=== PATIENT | female | born 1945 | race African-American/Black ===

== ENCOUNTER 2016-06-15 07:06 | Day surgery (SDC) | payer MEDICARE, OTHER ==
[~2016-06-15 07:06] MED LIST: KETOROLAC TROMETHAMINE 0.45% 4 DROP/0.4 ML DROPERETTE OS PRN; MIDAZOLAM 2 MG/2 ML INJ ONE
[2016-06-15] MEDS ORDERED: EPINEPHRINE INJ/PF 1 MG/1 ML AMPULE ONE (07:35)
[2016-06-15] MEDS ORDERED: LIDOCAINE 1% INJ-PF (10 MG/ML) 30 ML SDV ONE (07:35)
[2016-06-15] MEDS ORDERED: CHONDR SU A NA/HYALUR INTRAOC KIT (SURGICARE) ONE (07:35)
[2016-06-15] MEDS: CYCLOPENTOLATE 0.2%/PHENYLEPHRINE 1% OPH SOLN 2 ML OS PRN ×3 (07:47→08:08)
[2016-06-15] MEDS: TROPICAMIDE 1% OPH SOLN 3 ML OS PRN ×3 (07:47→08:08)
[2016-06-15] MEDS: BESIFLOXACIN HCL 0.6% OPH SUSP 5 ML BOTTLE OS PRN ×4 (07:47→08:49)
[2016-06-15] MEDS: TETRACAINE HCL 0.5% OPH SOLN 2 ML OS PRN ×3 (07:48→08:35)
--- NOTE | 2016-06-15 20:08 | [facility] OPERATIVE REPORT E ---
[facility] Operative Report NAME: MARY JEFFERS AGE: 71Y DATE OF SURGERY: 06/15/2016 ROOM: PREOPERATIVE DIAGNOSIS: Cataract, left eye. POSTOPERATIVE DIAGNOSIS: Cataract, left eye. OPERATION: Cataract extraction with intraocular lens implant of the left eye. SURGEON: GINA VAZ M.D. ANESTHESIA: Topical. PROCEDURE: After obtaining appropriate consent, the patient's left eye was prepped and draped in sterile fashion as well as the surgeon in a sterile manner and cataract surgery was started. First a paracentesis blade was used to make a small side-port incision. Viscoelastic was used to inflate the anterior chamber. Next a 2.4 mm incision was made with the paracentesis blade. A continuous capsulorrhexis incision was made using a cystotome and Utrata forceps. Following this hydrodissection was carried out to make the lens fully loose and mobile and it was rotated 90 degrees. Following this, a etxuuu-fyb-vdkjlpm technique was used to phacoemulsify the lens with a CDE of 9.85. The remaining cortex was removed with irrigation/aspiration. Provisc was instilled into the capsular bag to inflate the bag. A SN60WF, 24.5 diopter lens was placed. The remaining viscoelastic material was removed with irrigation/aspiration. Following this, a 10-0 nylon suture was used to close the incision and it was found to be watertight. Vigamox was instilled in the eye and a protective shield was placed over the eye. The patient returned to the postoperative recovery in stable condition. DICTATING PHYSICIAN: GINA VAZ M.D. [id number] PHY#: [id number] ID: [id number] JOB#: [id number] ACCT: [id number] cc:GINA VAZ M.D. >
--- NOTE | 2016-06-15 20:08 | DISCHARGE SUMMARY E ---
Discharge Summary NAME: MARY JEFFERS : 1945 AGE: 71Y ADMITTED: 06/15/2016 DISCHARGED: HISTORY AND HOSPITAL COURSE: This is a 71-year-old female who underwent cataract extraction of the left eye. Diagnosis: Cataract, left eye. She underwent surgery because she was having difficulty seeing road signs and glare from headlights. She should be on a regular diet. No bending at her waist. No heavy lifting. She should use her Besivance, Ilevro, and Durezol at 3:00 p.m. and 8:00 p.m. and sleep with a rigid shield, and I will see her for a 1-day postoperative visit tomorrow. DICTATING PHYSICIAN: GINA VAZ M.D. [id number] PHY#: [id number] ID: [id number] JOB#: [id number] ACCT: [id number] cc:GINA VAZ M.D. >
== END 2016-06-15 09:34 | disposition home or self-care (01) ==
LOC: SC 07:06
PROVIDERS: ATTEND Internal Medicine
PROC: 08RK3JZ Replacement of Left Lens with Synthetic Substitute, Percutaneous Approach (ICD-10-PCS; principal; 2016-06-15 08:30)
DX: H25.13 Age-related nuclear cataract, bilateral (principal); J45.909 Unspecified asthma, uncomplicated; I10 Essential (primary) hypertension; E11.9 Type 2 diabetes mellitus without complications; G47.30 Sleep apnea, unspecified; Z79.82 Long term (current) use of aspirin
CPT/HCPCS: 66984; 82962; V2632; J2250; J3490 ×2; A9270; J0171; 142

== ENCOUNTER 2016-07-06 07:57 | Day surgery (SDC) | payer MEDICARE, OTHER ==
[~2016-07-06 07:57] MED LIST changes: +CHONDR SU A NA/HYALUR INTRAOC KIT (SURGICARE) ONE; +EPINEPHRINE INJ/PF 1 MG/1 ML AMPULE ONE; +FENTANYL CITRATE INJ/PF 100 MCG/2 ML AMPUL ONE; +KETOROLAC TROMETHAMINE 0.45% 4 DROP/0.4 ML DROPERETTE OD PRN; -KETOROLAC TROMETHAMINE 0.45% 4 DROP/0.4 ML DROPERETTE OS PRN; +LIDOCAINE 1% INJ-PF (10 MG/ML) 30 ML SDV ONE; +ONDANSETRON HCL INJ/PF 4 MG/2 ML SDV ONE
[2016-07-06] MEDS: TROPICAMIDE 1% OPH SOLN 3 ML OD PRN ×3 (08:30→08:48)
[2016-07-06] MEDS: CYCLOPENTOLATE 0.2%/PHENYLEPHRINE 1% OPH SOLN 2 ML OD PRN ×3 (08:31→08:49)
[2016-07-06] MEDS: TETRACAINE HCL 0.5% OPH SOLN 2 ML OD PRN ×3 (08:32→09:09)
[2016-07-06] MEDS: BESIFLOXACIN HCL 0.6% OPH SUSP 5 ML BOTTLE OD PRN ×4 (08:32→09:38)
[2016-07-06] MEDS ORDERED: MIDAZOLAM 2 MG/2 ML INJ ONE (08:43)
--- NOTE | 2016-07-06 13:08 | [facility] OPERATIVE REPORT E ---
[facility] Operative Report NAME: MARY JEFFERS AGE: 71Y DATE OF SURGERY: 07/06/2016 ROOM: PREOPERATIVE DIAGNOSIS: CATARACT, RIGHT EYE. POSTOPERATIVE DIAGNOSIS: CATARACT, RIGHT EYE. OPERATION: Cataract extraction with intraocular lens implant of the right eye. SURGEON: GINA VAZ M.D. ANESTHESIA: Topical. PROCEDURE: After obtaining appropriate consent, the patient's right eye was prepped and draped in sterile fashion as well as the surgeon in a sterile manner and cataract surgery was started. First a paracentesis blade was used to make a small side-port incision. Viscoelastic was used to inflate the anterior chamber. Next a 2.4 mm incision was made with the paracentesis blade. A continuous capsulorrhexis incision was made using a cystotome and Utrata forceps. Following this hydrodissection was carried out to make the lens fully loose and mobile and it was rotated 90 degrees. Following this, a hkxvqm-txu-vxnbefe technique was used to phacoemulsify the lens with a CDE of 17.55. The remaining cortex was removed with irrigation/aspiration. Provisc was instilled into the capsular bag to inflate the bag. A SN60WF, 23.5 diopter lens was placed. The remaining viscoelastic material was removed with irrigation/aspiration. Following this, a 10-0 nylon suture was used to close the incision and it was found to be watertight. Vigamox was instilled in the eye and a protective shield was placed over the eye. The patient returned to the postoperative recovery in stable condition. DICTATING PHYSICIAN: GINA VAZ M.D. [id number] PHY#: [id number] ID: [id number] JOB#: [id number] ACCT: [id number] cc:GINA VAZ M.D. >
--- NOTE | 2016-07-06 13:09 | [facility] DISCHARGE SUMMARY E ---
[facility] Discharge Summary NAME: MARY JEFFERS AGE: 71Y ADMITTED: 07/06/2016 DISCHARGED: 07/06/2016 HOSPITAL COURSE: This is a 71-year-old female who underwent cataract extraction of the right eye diagnosed as cataract right eye. She underwent surgery because she was having difficulty driving at night secondary to glare from headlights and difficulty seeing medicine bottles. She should be on a regular diet. No bending at her waist. No heavy lifting. She should use her Besivance, Ilevro, and Durezol at 3 p.m. and 8 p.m. and sleep with a rigid shield, and I will see her for a one day postoperative tomorrow. DICTATING PHYSICIAN: GINA VAZ M.D. [id number] PHY#: [id number] ID: [id number] JOB#: [id number] ACCT: [id number] cc:GINA VAZ M.D. >
== END 2016-07-06 10:30 | disposition home or self-care (01) ==
LOC: SC 07:57
PROVIDERS: ATTEND Internal Medicine
PROC: 08RJ3JZ Replacement of Right Lens with Synthetic Substitute, Percutaneous Approach (ICD-10-PCS; principal; 2016-07-06 09:30)
DX: H25.11 Age-related nuclear cataract, right eye (principal); E11.9 Type 2 diabetes mellitus without complications; I10 Essential (primary) hypertension; F17.210 Nicotine dependence, cigarettes, uncomplicated; Z79.899 Other long term (current) drug therapy; Z79.82 Long term (current) use of aspirin; Z79.84 Long term (current) use of oral hypoglycemic drugs; Z79.01 Long term (current) use of anticoagulants
CPT/HCPCS: 66984; 82962; V2632; J2250; J3490 ×2; A9270; J0171; 142; J2405; J3010

== ENCOUNTER → 2017-06-15 | Outpatient (CLI) | payer MEDICARE, OTHER ==
--- NOTE | 2017-06-15 12:31 | RADIOLOGY REPORT (SQ) ---
EXAM DESCRIPTION: BARIUM SWALLOW PHARYNX ONLY COMPLETED DATE/TIME: 06/15/2017 11:59 am REASON FOR STUDY: DYSPHAGIA (R13.10) R13.10 DYSPHAGIA, UNSPECIFIED COMPARISON: None. TECHNIQUE: Under fluoroscopic guidance, patient ingested one swallow of water soluble contrast initi ally then effervescent granules followed by thick and thin barium. Fluoroscopic spot images and routi ne radiographic images acquired and stored on PACS. 12 MM BARIUM TABLET GIVEN: Yes. No significant delay in passage. LIMITATIONS: None. FLUOROSCOPY TIME: FLUORO TIME: 20 SECONDS 10 fluoroscopy images saved to PACS. FINDINGS: NEUROMUSCULAR COORDINATION OF SWALLOW: Normal. No aspiration. ESOPHAGEAL MOTILITY: Normal peristalsis. No esophageal spasm. ESOPHAGEAL MUCOSA: Normal mucosa without masses or ulceration. No foreign bodies or obstruction iden tified. GASTRO-ESOPHAGEAL JUNCTION: A very small sliding hiatal hernia with moderate gastroesophageal reflux is seen extending into the mid esophagus. NON-GI TRACT STRUCTURES: No significant finding. OTHER: No other significant finding. IMPRESSION: 1. NO FOREIGN BODY OR OBSTRUCTION. 2. VERY SMALL SLIDING HIATAL HERNIA WITH MODERATE GASTROESOPHAGEAL REFLUX. COMMENT: Attempt was made to call report at 1210 hours however, the office is closed until 1300 hour s for lunch therefore the report will be called at 1300 hours. Quality ID [id number]: Final reports for procedures using fluoroscopy that document radiation exposure morales ramos, or exposure time and number of fluorographic images (if radiation exposure indices are not avail able) TECHNICAL DOCUMENTATION: JOB ID: [id number] [employer]- All Rights Reserved
== END ==
LOC: RAD 11:20
PROVIDERS: ATTEND Internal Medicine
DX: R13.10 Dysphagia, unspecified (principal)
CPT/HCPCS: 74210

== ENCOUNTER 2018-05-07 08:15 | Emergency (ER) | payer MEDICARE, OTHER ==
--- NOTE | 2018-05-07 09:03 | ER Document Report ---
ED General - General Chief Complaint: Lower Abdominal Pain Stated Complaint: ABDOMINAL PAIN, RIGHT KNEE/SHOULDER PAIN Time Seen by Provider: 05/07/18 09:03 Notes: Patient is a 73-year-old female that presents to the emergency department for chief complaint of abdominal pain. Patient states the pain started Sunday morning, it was coming and going, described as a sharp pain in the right lower quadrant, she is felt gassy as well, she took some Pepto-Bismol and Maalox without much relief of her pain so she decided come to the ED to have this evaluated. She currently rates the pain as a 2 out of 10, the pain does come and go, describes as an aching and occasionally sharp sensation is noted. they have had associated nausea, but no vomiting, she states she thought she might of been constipated, but she did have a bowel movement yesterday. She also secondarily complains of some pain in her left foot, and noticed some swelling, the pains along the medial lower aspect of the foot, worse with walking. No injury she is aware of. Past Medical History: Diabetes mellitus, A. fib, hypertension Past Surgical History: Bilateral total knee arthroplasty Social History: Former smoker, denies current alcohol or drug use. Family History: Reviewed and noncontributory for presenting illness Allergies: Reviewed, see documented allergy list. REVIEW OF SYSTEMS: Other than noted above, the 12 point review of systems was reviewed with the patient and were negative, all pertinent findings are included in the HPI. PHYSICAL EXAMINATION: Vital signs reviewed, nursing noted reviewed. GENERAL: Elderly female, but well-appearing and well-nourished in no acute distress. HEAD: Atraumatic, normocephalic. EYES: Eyes appear normal, extraocular movements intact, sclera anicteric, conjunctiva are normal. ENT: nares patent, oropharynx clear without exudates. Moist mucous membranes. NECK: Normal range of motion, supple without lymphadenopathy LUNGS: Breath sounds clear to auscultation bilaterally and equal. No wheezes rales or rhonchi. HEART: Regular rate and rhythm without murmurs ABDOMEN: Soft, normal bowel sounds, tenderness with palpation, mild in the right lower quadrant, No rebound, guarding, or rigidity. No masses appreciated. EXTREMITIES: Left ankle: There is mild tenderness to palpation over the medial malleolus, without deformity or ecchymosis, there is slight pedal edema compared to the right, no calf tenderness bilaterally, no erythema, there is tenderness to palpation of the plantar fascia on the left compared to the right as well. Otherwise good range of motion, no pitting edema. NEUROLOGICAL: No focal neurological deficits. Moves all extremities spontaneously Motor and sensory grossly intact on exam. PSYCH: Normal mood, normal affect. SKIN: Warm, Dry, normal turgor, no rashes or lesions noted on exposed skin TRAVEL OUTSIDE OF THE [place] IN LAST 30 DAYS: No - Related Data Allergies/Adverse Reactions: No Known Allergies Allergy (Verified 05/07/18 08:18) Past Medical History - Social History Smoking Status: Former Smoker Family History: Reviewed & Not Pertinent - Past Medical History Cardiac Medical History: Reports: Hx Atrial Fibrillation, Hx Hypertension Denies: Hx Heart Attack - STRESS TEST NORMAL Pulmonary Medical History: Reports: Hx Asthma - brought on by illness, pneumonia Neurological Medical History: Denies: Hx Cerebrovascular Accident, Hx Seizures Endocrine Medical History: Reports: Hx Diabetes Mellitus Type 2 GI Medical History: Denies: Hx Hepatitis, Hx Hiatal Hernia, Hx Ulcer Infectious Medical History: Denies: Hx Hepatitis Past Surgical History: Reports: Hx Hysterectomy. Denies: Hx Mastectomy, Hx Open Heart Surgery, Hx Pacemaker - Immunizations Hx Diphtheria, Pertussis, Tetanus Vaccination: No Physical Exam - Vital signs Vitals: Temp Pulse Resp BP Pulse Ox 98.1 F 67 20 160/73 H 97 05/07/18 08:27 05/07/18 08:27 05/07/18 08:27 05/07/18 08:27 05/07/18 08:27 Course - Re-evaluation Re-evalutation: Patient seen and examined vital signs reviewed. Laboratory data and imaging were ordered as appropriate for the patient's presenting symptoms and complaint, with consideration of any critical or life threatening conditions that may be associated with their obtained history and exam as noted above. Patient was treated with 2 mg of IV morphine, Zofran, and IV fluids Results were reviewed when available and demonstrated unremarkable CBC, no leukocytosis, normal lactic acid, CMP was unremarkable as well, patient did have mild ketones in the urine, and some trace signs of possible UTI, we will treat this given that the patient did have some lower abdominal pain, with Keflex for 5 days as an outpatient. The patient was re-evaluated and was stable, pain was resolved Evaluation was most consistent with UTI, nonspecific abdominal pain. Patient was noted to have an adrenal nodule, noted on her CT imaging, on the left side, patient was made aware of this and given a copy of the results to follow-up with her primary care physician. In regard to the patient's left foot pain and mild swelling, I did not appreciate much significant edema to the left foot, she was mildly tender, medial aspect of the ankle, without obvious injury or deformity, ecchymosis or swelling, patient was examining some signs of plantar fasciitis, advised to follow-up with her primary care physician to have this evaluated further if it persists. No concern for other acute findings, no concern for fracture at this time. Results were discussed with the patient at this point, after careful consideration I feel that that patient can be discharged from the emergency department, the patient was educated treatments and reasons to return to the emergency department based on their presumed diagnosis as noted above, they were advised to followup with a primary care physician in 2-3 days. Patient was agreeable to plan of care. *Note is created using voice recognition software and may contain spelling, syntax or grammatical errors. Laboratory 05/07/18 05/07/18 05/07/18 09:35 09:35 09:35 WBC 6.4 RBC 4.85 Hgb 13.6 Hct 41.8 MCV 86 MCH 28.1 MCHC 32.7 RDW 14.4 H Plt Count 289 Seg Neutrophils % 55.4 Lymphocytes % 34.8 Monocytes % 8.1 Eosinophils % 0.6 Basophils % 1.1 Absolute Neutrophils 3.5 Absolute Lymphocytes 2.2 Absolute Monocytes 0.5 Absolute Eosinophils 0.0 Absolute Basophils 0.1 Sodium 142.4 Potassium 4.2 Chloride 101 Carbon Dioxide 31 H Anion Gap 10 BUN 16 Creatinine 0.76 Est GFR ( Amer) > 60 Est GFR (Non-Af Amer) > 60 Glucose 118 H Lactic Acid Calcium 10.0 Total Bilirubin 0.8 Direct Bilirubin 0.3 Neonat Total Bilirubin Not Reportable Neonat Direct Bilirubin Not Reportable Neonat Indirect Bili Not Reportable AST 20 ALT 21 Alkaline Phosphatase 69 Troponin I < 0.012 Total Protein 7.3 Albumin 4.3 Lipase 61.6 Urine Color Urine Appearance Urine pH Ur Specific Fowler Urine Protein Urine Glucose (UA) Urine Ketones Urine Blood Urine Nitrite Urine Bilirubin Urine Urobilinogen Ur Leukocyte Esterase Urine WBC (Auto) Urine RBC (Auto) Urine Bacteria (Auto) Squamous Epi Cells Auto Urine Mucus (Auto) Urine Ascorbic Acid 05/07/18 05/07/18 09:35 09:35 WBC RBC Hgb Hct MCV MCH MCHC RDW Plt Count Seg Neutrophils % Lymphocytes % Monocytes % Eosinophils % Basophils % Absolute Neutrophils Absolute Lymphocytes Absolute Monocytes Absolute Eosinophils Absolute Basophils Sodium Potassium Chloride Carbon Dioxide Anion Gap BUN Creatinine Est GFR ( Amer) Est GFR (Non-Af Amer) Glucose Lactic Acid 1.3 Calcium Total Bilirubin Direct Bilirubin Neonat Total Bilirubin Neonat Direct Bilirubin Neonat Indirect Bili AST ALT Alkaline Phosphatase Troponin I Total Protein Albumin Lipase Urine Color YELLOW Urine Appearance SLIGHTLY-CLOUDY Urine pH 6.0 Ur Specific Fowler 1.024 Urine Protein NEGATIVE Urine Glucose (UA) >=500 H Urine Ketones TRACE H Urine Blood NEGATIVE Urine Nitrite NEGATIVE Urine Bilirubin NEGATIVE Urine Urobilinogen NEGATIVE Ur Leukocyte Esterase TRACE H Urine WBC (Auto) 1 Urine RBC (Auto) 1 Urine Bacteria (Auto) TRACE Squamous Epi Cells Auto 2 Urine Mucus (Auto) RARE Urine Ascorbic Acid NEGATIVE Abdomen/Pelvis CT 05/07/18 00:00 IMPRESSION: 1. No CT findings to explain right lower quadrant abdominal pain. Normal appendix in the right lower quadrant containing air and oral contrast. 2. Incidental 2.3 cm soft tissue attenuation left adrenal nodule. Recommend nonemergent adrenal protocol CT to completely characterize incidental adrenal nodule measuring 2-4 cm. - Vital Signs Vital signs: Temp Pulse Resp BP Pulse Ox 98.1 F 67 18 149/70 H 95 05/07/18 08:27 05/07/18 08:27 05/07/18 12:01 05/07/18 12:00 05/07/18 12:01 - Laboratory Result Diagrams: 05/07/18 09:35 05/07/18 09:35 Laboratory results interpreted by me: 05/07/18 05/07/18 05/07/18 09:35 09:35 09:35 RDW 14.4 H Carbon Dioxide 31 H Glucose 118 H Urine Glucose (UA) >=500 H Urine Ketones TRACE H Ur Leukocyte Esterase TRACE H - EKG Interpretation by Me Additional EKG results interpreted by me: EKG demonstrates sinus bradycardia with a ventricular rate of 55 bpm, normal axis, normal intervals, no evidence of acute ischemia on this EKG, this is compared with prior EKG from 07/17/2014, without significant change. Discharge - Discharge Clinical Impression: Adrenal nodule, Left foot pain UTI (urinary tract infection) Qualifiers: Urinary tract infection type: site unspecified Hematuria presence: without hematuria Qualified Code(s): N39.0 - Urinary tract infection, site not specified Abdominal pain Qualifiers: Abdominal location: unspecified location Qualified Code(s): R10.9 - Unspecified abdominal pain Condition: Stable Disposition: HOME, SELF-CARE Instructions: Abdominal Pain ([facility]), Urinary Tract Infection ([facility]) Additional Instructions: Please return to the emergency department if you have any worsening, or concern of your symptoms. Please return to the emergency department if you develop chest pain, difficulty breathing, severe abdominal pain, or ongoing vomiting. Please follow-up with your primary care physician in 2-3 days and any other recommended physicians. If prescribed, take all medications as directed. If you have any questions or concerns do not hesitate to return the emergency department for evaluation. Please follow-up with your primary care physician, regarding follow-up CAT scan for the adrenal nodule in the future. Prescriptions: Cephalexin Monohydrate [Keflex 500 mg Capsule] 500 mg PO Q12 5 Days #10 capsule Referrals: GRACE PICHARDO MD [Primary Care Provider] - Follow up in 3-5 days
[2018-05-07] MEDS ORDERED: ONDANSETRON HCL INJ/PF 4 MG/2 ML SDV IV ONE (09:35)
[2018-05-07] MEDS ORDERED: MORPHINE SULFATE 10 MG/ML INJ IV ONE (09:36)
[2018-05-07] MEDS ORDERED: NORMAL SALINE 500 ML IV ONE (09:36)
[2018-05-07 09:50] LABS: ABSOLUTE BASOPHILS # (AUTO) 0.1 10^3/uL (0.0-0.2); ABSOLUTE LYMPHOCYTES (AUTO) 2.2 10^3/uL (0.5-4.7); ABSOLUTE MONOCYTES (AUTO) 0.5 10^3/uL (0.1-1.4); ABSOLUTE NEUT (AUTO) 3.5 10^3/uL (1.7-8.2); BASOPHILS % (AUTO) 1.1 % (0-2); EOSINOPHILS % (AUTO) 0.6 % (0-6); HEMATOCRIT 41.8 % (36.0-47.0); HEMOGLOBIN 13.6 g/dL (12.0-15.5); LYMPHOCYTES % (AUTO) 34.8 % (13-45); MEAN CORPUSCULAR HEMOGLOBIN 28.1 pg (27.0-33.4); MEAN CORPUSCULAR HGB CONC 32.7 g/dL (32.0-36.0); MEAN CORPUSCULAR VOLUME 86 fl (80-97); MONOCYTES % (AUTO) 8.1 % (3-13); PLATELET COUNT 289 10^3/uL (150-450); RED BLOOD COUNT 4.85 10^6/uL (3.72-5.28); RED CELL DISTRIBUTION WIDTH 14.4 % (11.5-14.0); SEGMENTED NEUTROPHILS % (AUTO) 55.4 % (42-78); TOTAL CELLS COUNTED % (AUTO) 100 %; WHITE BLOOD COUNT 6.4 10^3/uL (4.0-10.5)
[2018-05-07 10:09] LABS: APPEARANCE,URINE SLIGHTLY-CLOUDY; BILIRUBIN,URINE NEGATIVE (NEGATIVE); COLOR,URINE YELLOW; GLUCOSE, URINE >=500 mg/dL (NEGATIVE); KETONES,URINE TRACE mg/dL (NEGATIVE); LEUKOCYTE ESTERASE,URINE TRACE (NEGATIVE); NITRITE,URINE NEGATIVE (NEGATIVE); PROTEIN,URINE NEGATIVE (NEGATIVE); URINE SPECIFIC GRAVITY 1.024; UROBILINOGEN,URINE NEGATIVE mg/dL (<2.0)
[2018-05-07 10:20] LABS: ALANINE AMINOTRANSFERASE 21 U/L (9-52); ALBUMIN 4.3 g/dL (3.5-5.0); ALKALINE PHOSPHATASE 69 U/L (38-126); ANION GAP 10 (5-19); ASPARTATE AMINO TRANSFERASE 20 U/L (14-36); BILIRUBIN,DIRECT 0.3 mg/dL (0.0-0.4); BILIRUBIN,TOTAL 0.8 mg/dL (0.2-1.3); BLOOD UREA NITROGEN 16 mg/dL (7-20); CARBON DIOXIDE 31 mmol/L (22-30); CHLORIDE 101 mmol/L (98-107); GLUCOSE 118 mg/dL (75-110); LIPASE 61.6 U/L (23-300); POTASSIUM 4.2 mmol/L (3.6-5.0); SODIUM 142.4 mmol/L (137-145); TOTAL PROTEIN 7.3 g/dL (6.3-8.2)
--- NOTE | 2018-05-07 12:57 | EKG REPORT ---
SEVERITY:- BORDERLINE ECG - SINUS RHYTHM NONSPECIFIC ST-T CHANGES- INFERIOR LEADS : Confirmed by: Kush Rhoades MD 07-May-2018 12:56:37
--- NOTE | 2018-05-07 13:22 | RADIOLOGY REPORT (SQ) ---
EXAM DESCRIPTION: CT ABD/PELVIS WITH IV ORAL COMPLETED DATE/TIME: 05/07/2018 12:47 pm REASON FOR STUDY: rlq abdominal pain COMPARISON: None. TECHNIQUE: CT scan of the abdomen and pelvis performed using helical scanning technique with dynamic intravenous contrast injection. No oral contrast. Images reviewed with lung, soft tissue, and bone windows. Reconstructed coronal and sagittal MPR images reviewed. Delayed images for evaluation of the urinary system also acquired. All images stored on PACS. All CT scanners at this facility use dose modulation, iterative reconstruction, and/or weight based d osing when appropriate to reduce radiation dose to as low as reasonably achievable (ALARA). [facility]: Dose Right [facility]: CareDose [facility]: Dose Right [facility]: Teradose 4D [facility]: AdTrib CONTRAST TYPE AND DOSE: contrast/concentration: Isovue 350.00 mg/ml; Total Contrast Delivered: 99.0 ml; Total Saline Delivered: 70.0 ml Additional Gastrografin enteric iodinated contrast was given by mouth. RENAL FUNCTION: GFR > 60. RADIATION DOSE: CT Rad equipment meets quality standard of care and radiation dose reduction techniq ues were employed. CTDIvol: 11.1 - 13.2 mGy. DLP: 1297 mGy-cm.. LIMITATIONS: None. FINDINGS: LOWER CHEST: No significant findings. No nodules or infiltrates. LIVER: Normal size. No masses. No dilated ducts. SPLEEN: Normal size. No focal lesions. PANCREAS: No masses. No significant calcifications. No adjacent inflammation or peripancreatic fluid collections. Pancreatic duct not dilated. GALLBLADDER: No identified stones by CT criteria. No inflammatory changes to suggest cholecystitis. ADRENAL GLANDS: 2.3 cm soft tissue attenuation left adrenal nodule. RIGHT KIDNEY AND URETER: No solid masses. No significant calcifications. No hydronephrosis or hyd roureter. LEFT KIDNEY AND URETER: No solid masses. No significant calcifications. No hydronephrosis or hydr oureter. AORTA AND VESSELS: No aneurysm. No dissection. Renal arteries, SMA, celiac without stenosis. RETROPERITONEUM: No retroperitoneal adenopathy, hemorrhage or masses. BOWEL AND PERITONEAL CAVITY: No masses or inflammatory changes. No free fluid or peritoneal masses. APPENDIX: Normal appendix in the right lower quadrant containing air and oral contrast. PELVIS: No mass. No free fluid. Normal bladder. ABDOMINAL WALL: No masses. No hernias. BONES: No significant or acute findings. OTHER: No other significant finding. IMPRESSION: 1. No CT findings to explain right lower quadrant abdominal pain. Normal appendix in th e right lower quadrant containing air and oral contrast. 2. Incidental 2.3 cm soft tissue attenuation left adrenal nodule. Recommend nonemergent adrenal pro tocol CT to completely characterize incidental adrenal nodule measuring 2-4 cm. TECHNICAL DOCUMENTATION: JOB ID: [id number] Quality ID # [id number]: Final reports with documentation of one or more dose reduction techniques (e.g., Au tomated exposure control, adjustment of the mA and/or kV according to patient size, use of iterative reconstruction technique) 2010 [email or web address]- All Rights Reserved Reading location - IP/workstation name: [email or web address]
[2018-05-07 13:45] VITALS: BP 126/70
== END 2018-05-07 13:51 | disposition home or self-care (01) ==
LOC: ER 08:15
DX: N39.0 Urinary tract infection, site not specified (principal); E27.9 Disorder of adrenal gland, unspecified; M79.672 Pain in left foot; R10.30 Lower abdominal pain, unspecified; M25.511 Pain in right shoulder; M25.561 Pain in right knee; E11.9 Type 2 diabetes mellitus without complications; I10 Essential (primary) hypertension; Z90.710 Acquired absence of both cervix and uterus
CPT/HCPCS: 93005; 99284; 96361; 96374; 96375; 36415; 83690; 85025; 80053; 81001; 84484; 83605; 74177; 93010; J2270; J2405; J7040

== ENCOUNTER → 2018-09-24 | Outpatient (CLI) | payer MEDICARE, OTHER ==
--- NOTE | 2018-09-24 13:09 | RADIOLOGY REPORT (SQ) ---
EXAM DESCRIPTION: U/S ABDOMEN LTD W/DOPPLER COMPLETED DATE/TIME: 09/24/2018 12:49 pm REASON FOR STUDY: EPIGASTRIC PAIN R10.13 EPIGASTRIC PAIN COMPARISON: None. TECHNIQUE: Dynamic and static grayscale images acquired of the abdomen and recorded on PACS. Additio nal selected color Doppler and spectral images recorded. LIMITATIONS: None. FINDINGS: PANCREAS: No masses. Visualized pancreatic duct normal caliber. LIVER: No masses. Echotexture normal. LIVER VASCULATURE: Normal directional flow of the main portal vein and hepatic veins. GALLBLADDER: No stones. Normal wall thickness. No pericholecystic fluid. ULTRASOUND-DETECTED TRIPLETT'S SIGN: Negative. INTRAHEPATIC DUCTS AND COMMON DUCT: CBD and intrahepatic ducts normal caliber. No filling defects. INFERIOR VENA CAVA: Normal flow. AORTA: No aneurysm. RIGHT KIDNEY: Normal size. Normal echogenicity. No solid or suspicious masses. No hydronephrosis. No calcifications. PERITONEAL AND RIGHT PLEURAL SPACE: No ascites or effusions. OTHER: No other significant findings. IMPRESSION: NORMAL RIGHT UPPER QUADRANT ULTRASOUND. TECHNICAL DOCUMENTATION: JOB ID: [id number] [employer]- All Rights Reserved Reading location - IP/workstation name: [email or web address]
== END ==
LOC: RAD 11:28
PROVIDERS: ATTEND Internal Medicine
DX: R10.13 Epigastric pain (principal)
CPT/HCPCS: 76705; 93976

== ENCOUNTER → 2019-11-17 | Outpatient (CLI) | payer MEDICARE, OTHER ==
--- NOTE | 2019-11-17 12:24 | RADIOLOGY REPORT (SQ) ---
EXAM DESCRIPTION: HAND BILATERAL 2 VIEWS IMAGES COMPLETED DATE/TIME: 11/17/2019 12:13 pm REASON FOR STUDY: POLYARTHRITIS M13.0 POLYARTHRITIS, UNSPECIFIED COMPARISON: None. EXAM PARAMETERS: NUMBER OF VIEWS: Two views right hand. Two views left hand. TECHNIQUE: AP and lateral radiographic images acquired of bilateral hands. LIMITATIONS: None. FINDINGS: RIGHT HAND: MINERALIZATION: Normal. BONES: No acute fracture or dislocation. No worrisome bone lesions. Small osteophytes at the 1st meta carpal phalangeal joint. JOINTS: Degenerative changes in the 1st carpal/metacarpal joint and 1st metacarpal phalangeal joint. Mild joint space narrowing in both the proximal and distal interphalangeal joints. There are degene rative changes in the radiocarpal joint with joint space narrowing and subchondral sclerosis. SOFT TISSUES: No swelling. No calcifications. OTHER: No other significant finding. LEFT HAND: MINERALIZATION: Normal. BONES: No acute fracture or dislocation. No worrisome bone lesions. No significant osteophytes. JOINTS: Joint space narrowing in the 1st carpal/metacarpal joint along with small osteophytes. Joint space narrowing in the radiocarpal joint. Mild joint space narrowing in the proximal and distal int erphalangeal joints. SOFT TISSUES: No swelling. No calcifications. OTHER: No other significant finding. IMPRESSION: Bilateral osteoarthritic changes as described. TECHNICAL DOCUMENTATION: JOB ID: [id number] 2010 [employer]- All Rights Reserved Reading location - IP/workstation name: [email or web address]
== END ==
LOC: OD 11:54
PROVIDERS: ATTEND Internal Medicine
DX: M13.842 Other specified arthritis, left hand (principal); M13.841 Other specified arthritis, right hand

== ENCOUNTER → 2020-02-26 | Outpatient (CLI) | payer MEDICARE, OTHER ==
--- NOTE | 2020-03-11 12:13 | WOMENS IMAGING REPORT ---
EXAM DESCRIPTION: 3D SCREENING MAMMO BILAT IMAGES COMPLETED DATE/TIME: 02/26/2020 2:08 pm REASON FOR STUDY: Z12.31 ENCNTR SCREEN MAMMOGRAM FOR MALIGNANT NEOPLASM OF BREAST Z12.31 ENCNTR SCR EEN MAMMOGRAM FOR MALIGNANT NEOPLASM OF [place] COMPARISON: None. EXAM PARAMETERS: Standard craniocaudal and mediolateral oblique views of each breast recorded using digital acquisition and breast tomosynthesis. Read with the assistance of CAD. .[facility] - [place] [employer] Version 9.2 LIMITATIONS: None. FINDINGS: RIGHT BREAST MASSES: No suspicious masses. CALCIFICATIONS: No new or suspicious calcifications. ARCHITECTURAL DISTORTION: None. ASYMMETRY: Focal asymmetry in the lateral breast, located 7 cm from the nipple, visualized on the CC image only. OTHER: No other significant findings. LEFT BREAST MASSES: No suspicious masses. CALCIFICATIONS: No new or suspicious calcifications. ARCHITECTURAL DISTORTION: None. ASYMMETRY: None noted. OTHER: No other significant findings. IMPRESSION: Focal asymmetry in the lateral right breast. No worrisome mammographic findings in the left breast. 0 Incomplete: Needs Additional Imaging Evaluation and/or prior Mammograms for Comparison. BREAST DENSITY: b. There are scattered areas of fibroglandular density. BIRAD: ASSESSMENT: 0 Incomplete: Needs Additional Imaging Evaluation and/or prior Mammograms for C omparison. RECOMMENDATION: RECOMMENDED FOLLOW-UP: Recommend additional evaluation with compression views of the right breast and potential follow-up ultrasound if indicated. Recommend routine screening mammograp hy of the left breast. The patient will be contacted for additional imaging. COMMENT: The patient has been notified of the results by letter per SA requirements. Additional no tification policies are in place for contacting patient with suspicious or incomplete findings. Quality ID #225: The [employer] recommends an annual screening mammogram for women aged 40 years or over. This facility utilizes a reminder system to ensure that all patients receive reminder letters, and/or direct phone calls for appointments. This includes reminders for routine scr eening mammograms, diagnostic mammograms, or other Breast Imaging Interventions when appropriate. Th is patient will be placed in the appropriate reminder system. TECHNICAL DOCUMENTATION: FINDING NUMBER: (1) ASSESSMENT: (1) JOB ID: [id number] 2010 [employer]- All Rights Reserved Reading location - IP/workstation name: [email or web address]
== END ==
LOC: WI 13:32
PROVIDERS: ATTEND Internal Medicine
DX: Z12.31 Encounter for screening mammogram for malignant neoplasm of breast (principal)
CPT/HCPCS: 77063; 77067

== ENCOUNTER → 2020-03-23 | Outpatient (CLI) | payer MEDICARE, OTHER ==
--- NOTE | 2020-03-23 11:59 | WOMENS IMAGING REPORT ---
EXAM DESCRIPTION: 3D DX MAMMO RIGHT UNILAT; U/S BREAST UNILAT LIMITED IMAGES COMPLETED DATE/TIME: 03/23/2020 11:19 am; 03/23/2020 11:47 am REASON FOR STUDY: R92.2 INCONCLUSIVE MAMMOGRAM; R BREAST R92.2 R92.2 INCONCLUSIVE MAMMOGRAM COMPARISON: 02/26/2020. EXAM PARAMETERS: True lateral and spot compression CC images acquired with tomosynthesis. LIMITATIONS: None. FINDINGS: BREAST LATERALITY: right MASSES: No suspicious masses. CALCIFICATIONS: No new or suspicious calcifications. ARCHITECTURAL DISTORTION: None. ASYMMETRY: The focal asymmetry in the lateral breast effaces with compression imaging. OTHER: No other significant findings. BREAST ULTRASOUND: TECHNIQUE: Static and dynamic grayscale images acquired of the left breast in the specific areas of c linical/mammographic concern, lateral breast. Selected color Doppler images recorded. ELASTOGRAPHY PERFORMED: No. LIMITATIONS: None. FINDINGS: MASS: No mass identified. Normal glandular tissue. ELASTOGRAPHY CHARACTERISTICS:Not applicable. OTHER: No other significant finding. IMPRESSION: No worrisome mammographic or sonographic findings. Focal asymmetry effaces with additio nal compression. BREAST DENSITY: b. There are scattered areas of fibroglandular density. BIRAD: ASSESSMENT: 1 Negative. RECOMMENDATION: RECOMMENDED FOLLOW UP: Birads 1 or 2: The patient should resume routine screening . SPECIFIC INTERVENTION/IMAGING/CONSULTATION RECOMMENDED:No additional intervention/ imaging/consultati on needed at this time. COMMUNICATION:The imaging findings were not discussed with the patient. Her referring provider has be en notified of the findings. COMMENT: The patient has been notified of the results by letter per SA requirements. Additional no tification policies are in place for contacting patient with suspicious or incomplete findings. Quality ID #225: The [employer] recommends an annual screening mammogram for women aged 40 years or over. This facility utilizes a reminder system to ensure that all patients receive reminder letters, and/or direct phone calls for appointments. This includes reminders for routine scr eening mammograms, diagnostic mammograms, or other Breast Imaging Interventions when appropriate. Th is patient will be placed in the appropriate reminder system. TECHNICAL DOCUMENTATION: FINDING NUMBER: (1) ASSESSMENT: (1) JOB ID: [id number] 2010 [employer]- All Rights Reserved Reading location - IP/workstation name: [email or web address]
== END ==
LOC: WI 10:28
PROVIDERS: ATTEND Internal Medicine
DX: R92.2 Inconclusive mammogram (principal)
CPT/HCPCS: 76642; 77065; G0279